=== PATIENT | male | born 1955 | race Two or more races ===

== ENCOUNTER 2017-02-13 14:11 | Outpatient (CLI) | payer SELFPAY | END 2017-02-13 23:59 | disposition home health service (06) | LOC: WOU 14:11 | PROVIDERS: ATTEND Surgery | DX: L89.323 Pressure ulcer of left buttock, stage 3 (principal); L89.313 Pressure ulcer of right buttock, stage 3; Z79.82 Long term (current) use of aspirin; Z79.899 Other long term (current) drug therapy; G20 Parkinson's disease; K50.90 Crohn's disease, unspecified, without complications; G89.29 Other chronic pain; I89.0 Lymphedema, not elsewhere classified; L28.0 Lichen simplex chronicus; E11.9 Type 2 diabetes mellitus without complications; G12.21 Amyotrophic lateral sclerosis | CPT/HCPCS: 11042; 11045; A6402 ==